=== PATIENT | female | born 1960 | race Caucasian/White ===

== ENCOUNTER 2020-05-18 10:49 | Inpatient (IN) ==
[2020-05-18] MEDS ORDERED: cefOXitin 2,000 MG in Water for inj. (sterile) 20 ML IVP ONE (11:08)
[2020-05-18] MEDS ORDERED: Ringers Solution, Lactated 1,000 ML IVC SCH (11:15)
[2020-05-18] MEDS ORDERED: *HR* HYDROmorphone PF 0.5 MG/0.5 ML SYRINGE IVP PRN (11:58)
[2020-05-18] MEDS ORDERED: Promethazine 6.25 MG in Water for inj. (sterile) 20 ML IVPB PRN (11:58)
[2020-05-18] MEDS ORDERED: *HR* OxyCODONE Immed Rel 5 MG TABLET PO PRN (11:58)
[2020-05-18] MEDS ORDERED: Ondansetron 4 MG/2 ML VIAL IVP PRN ×2 (11:58→20:38)
[2020-05-18] MEDS ORDERED: Acetaminophen IV 1,000 MG/100 ML INFUS..BTL IVPB ONE (12:00)
[2020-05-18] MEDS ORDERED: Sugammadex Sodium 200 MG/2 ML VIAL IV ONE (13:50)
[2020-05-18] MEDS ORDERED: *HR* Succinylcholine 200 MG/10 ML VIAL IVP ONE (13:51)
[2020-05-18] MEDS ORDERED: *HR* FentaNYL (PF) 100 MCG/2 ML VIAL ONE (13:51)
[2020-05-18] MEDS ORDERED: *HR* Rocuronium Bromide 50 MG/5 ML VIAL ONE ×2 (13:51→16:16)
[2020-05-18] MEDS ORDERED: Ondansetron 4 MG/2 ML VIAL ONE ×2 (13:51→19:09)
[2020-05-18] MEDS ORDERED: Lidocaine -MPF 2% 2 ML VIAL ONE (13:51)
[2020-05-18] MEDS ORDERED: Dexamethasone 4 MG/ML VIAL ONE (13:51)
[2020-05-18] MEDS ORDERED: *HR* Midazolam HCl 2 MG/2 ML VIAL ONE (13:52)
[2020-05-18] MEDS ORDERED: *HR* Propofol 200 MG/20 ML VIAL IVP ONE (13:53)
[2020-05-18] MEDS ORDERED: Lidocaine HCL 4 ML Topical Solution (Laryng-O-Jet Kit Sterile Pak) TP ONE (13:56)
[2020-05-18] MEDS ORDERED: Isovue-300 50ML VIAL ONE (14:34)
[2020-05-18] MEDS ORDERED: *HR* HYDROMORPHONE 2 MG/ML VIAL ONE (18:49)
[2020-05-18] MEDS ORDERED: Ketorolac 30 MG/ML VIAL ONE (18:59)
[2020-05-18] MEDS ORDERED: *HR* Metoprolol 5 MG/5 ML VIAL IVP PRN (20:38)
[2020-05-18] MEDS ORDERED: Naloxone 0.4 MG/ML INJ IVP PRN (20:38)
[2020-05-18] MEDS: 0.9 % Sodium Chloride 1,000 ML IVC SCH (20:51)
[2020-05-18] MEDS: Acetaminophen IV 1,000 MG/100 ML INFUS..BTL IVPB SCH (23:58)
[2020-05-19] MEDS: Piperacillin/Tazobactam 3.375 GM in 0.9 % Sodium Chloride Mini Bag 100 ML IVPB SCH ×4 (00:08→23:23)
[2020-05-19] MEDS: 0.9 % Sodium Chloride 1,000 ML IVC SCH ×2 (06:16→15:17)
[2020-05-19] MEDS: *HR* Heparin 5,000 UNIT/ML VIAL SQ SCH ×2 (06:16→17:28)
[2020-05-19] MEDS: Pantoprazole 40 MG VIAL IVP SCH (06:16)
[2020-05-19] MEDS: Acetaminophen IV 1,000 MG/100 ML INFUS..BTL IVPB SCH ×4 (06:22→23:22)
[2020-05-19 07:07] LABS: Hematocrit 35.8 % (35.3-44.9); Hemoglobin 12.3 g/dL (11.5-15.4); Immature Granulocytes % 0.3 % (0-4); Lymphocytes # 0.6 K/mcL (0.6-4.6); Lymphocytes % 4.9 %; Mean Corpuscular HGB Conc 34.4 g/dL (31.6-35.5); Mean Corpuscular Hemoglobin 31.7 pg (28.0-33.3); Mean Corpuscular Volume 92.3 fL (83.0-100.0); Mean Platelet Volume 9.3 fL (9.4-12.4); Monocytes # 0.6 K/mcL (0.0-1.3); Platelet Count 236 K/mcL (140-400); Red Blood Count 3.88 M/mcL (3.82-4.97); Red Cell Distribution Width 11.7 % (11.5-14.5); Segmented Neutrophils % 89.8 %; White Blood Count 11.2 K/mcL (4.3-11.1)
[2020-05-19 07:25] LABS: BUN/Creatinine Ratio 14 (6-26); Blood Urea Nitrogen 9 mg/dL (8-23); Calcium 8.4 mg/dL (8.6-10.3); Carbon Dioxide 22 mEq/L (23-29); Chloride 109 mEq/L (98-107); Glucose 124 mg/dL (70-105); Magnesium 1.7 mg/dL (1.6-2.6); Osmolality,Calculated 286 (280-300); Phosphorous 4.7 mg/dL (2.7-4.5); Potassium 3.9 mEq/L (3.5-5.1); Sodium 138 mEq/L (136-145); eGFR For African Americans > 60 (> 60); eGFR For Non-African Americans > 60 (> 60)
[2020-05-19] MEDS: Ketorolac 15 MG/ML VIAL IVP SCH ×3 (11:53→23:20)
[2020-05-20] MEDS: 0.9 % Sodium Chloride 1,000 ML IVC SCH ×2 (00:16→09:50)
[2020-05-20] MEDS: Ketorolac 15 MG/ML VIAL IVP SCH ×4 (04:15→23:50)
[2020-05-20] MEDS: *HR* Heparin 5,000 UNIT/ML VIAL SQ SCH ×2 (04:50→17:26)
[2020-05-20] MEDS: Pantoprazole 40 MG VIAL IVP SCH (04:50)
[2020-05-20] MEDS: Acetaminophen IV 1,000 MG/100 ML INFUS..BTL IVPB SCH ×4 (05:36→23:49)
[2020-05-20 05:41] LABS: Basophils % 0.3 %; Eosinophils % 0.1 %; Hematocrit 33.6 % (35.3-44.9); Hemoglobin 11.2 g/dL (11.5-15.4); Immature Granulocytes % 0.1 % (0-4); Lymphocytes # 1.7 K/mcL (0.6-4.6); Lymphocytes % 21.2 %; Mean Corpuscular HGB Conc 33.3 g/dL (31.6-35.5); Mean Corpuscular Hemoglobin 31.5 pg (28.0-33.3); Mean Corpuscular Volume 94.6 fL (83.0-100.0); Mean Platelet Volume 9.3 fL (9.4-12.4); Monocytes # 0.6 K/mcL (0.0-1.3); Monocytes % 8.2 %; Neutrophils # 5.5 K/mcL (1.6-8.9); Platelet Count 205 K/mcL (140-400); Red Blood Count 3.55 M/mcL (3.82-4.97); Red Cell Distribution Width 11.8 % (11.5-14.5); Segmented Neutrophils % 70.1 %; White Blood Count 7.8 K/mcL (4.3-11.1)
[2020-05-20 05:59] LABS: BUN/Creatinine Ratio 16 (6-26); Blood Urea Nitrogen 9 mg/dL (8-23); Calcium 8.1 mg/dL (8.6-10.3); Carbon Dioxide 21 mEq/L (23-29); Chloride 112 mEq/L (98-107); Glucose 84 mg/dL (70-105); Osmolality,Calculated 288 (280-300); Potassium 3.3 mEq/L (3.5-5.1); Sodium 140 mEq/L (136-145); eGFR For African Americans > 60 (> 60); eGFR For Non-African Americans > 60 (> 60)
[2020-05-20] MEDS: Piperacillin/Tazobactam 3.375 GM in 0.9 % Sodium Chloride Mini Bag 100 ML IVPB SCH ×3 (08:48→23:50)
[2020-05-20] MEDS ORDERED: *HR* HYDROcodone/Acet 5/325 mg TABLET PO PRN (14:54)
[2020-05-21] MEDS: 0.9 % Sodium Chloride 1,000 ML IVC SCH (01:05)
[2020-05-21] MEDS: Acetaminophen IV 1,000 MG/100 ML INFUS..BTL IVPB SCH (06:42)
[2020-05-21] MEDS: Ketorolac 15 MG/ML VIAL IVP SCH ×4 (06:42→23:32)
[2020-05-21] MEDS: *HR* Heparin 5,000 UNIT/ML VIAL SQ SCH ×2 (06:43→17:51)
[2020-05-21] MEDS: Pantoprazole 40 MG VIAL IVP SCH (06:43)
[2020-05-22] MEDS: Pantoprazole 40 MG VIAL IVP SCH (05:52)
[2020-05-22] MEDS: Ketorolac 15 MG/ML VIAL IVP SCH (05:52)
[2020-05-22] MEDS: *HR* Heparin 5,000 UNIT/ML VIAL SQ SCH (05:52)
[2020-05-22 07:17] VITALS: BP 129/76
== END 2020-05-22 12:04 | disposition home or self-care (01) | DRG 331 ==
LOC: SAMDAY 10:49 → 3ANU 20:04
PROVIDERS: ADMIT Surgery; ATTEND Surgery